=== PATIENT | female | born 1990 | race African-American/Black ===

== ENCOUNTER 2017-04-06 16:19 | Emergency (ER) | payer BC, OTHER ==
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
[2017-04-06 16:27] VITALS: BP 149/63; PULSE 80; TEMP 98; BMI 25.4
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
== END 2017-04-06 19:35 | disposition home or self-care (01) ==
LOC: JERFT 16:19
DX: S09.93XA Unspecified injury of face, initial encounter (principal); S02.2XXA Fracture of nasal bones, initial encounter for closed fracture; Y04.2XXA Assault by strike against or bumped into by another person, initial encounter; Y93.89 Activity, other specified; Y92.159 Unspecified place in reform school as the place of occurrence of the external cause; Y99.0 Civilian activity done for income or pay
CPT/HCPCS: 70160-TC; 84703; 99281-25